=== PATIENT | female | born 1970 | race African-American/Black ===

== ENCOUNTER 2021-10-10 17:21 | Emergency (ER) | payer OTHER ==
[~2021-10-10 17:21] MED LIST: ALDACTONE25 MG PO; BACLOFEN 10MG T10 MG PO; BUSPAR5 MG PO; CATAPRES0.1 MG PO; COREG 6.25MG6.25 MG PO; COZAAR50 MG PO; FLEXERIL10 MG PO; HCTZ25 MG PO; ISOSORBIDE DINI20 M1 PO; MEDROL 4MG DOSEP4 MG PO; NORVASC5 MG PO; VENTOLIN HFA IN18 GM INH; VITAMIN B122500 MC1 PO; VOLTAREN **OUT50 MG PO; VOLTAREN **OUT75 MG PO; WELLBUTRIN XL150 MG PO
[2021-10-10 18:22] LABS: BASOPHIL 0.5 % (0-2); EOSINOPHIL 0.7 % (0-5); HCT 43.4 % (37.0-47.0); HGB 13.8 g/dl (12.5-16.0); MCH 28.4 pg (25.0-31.0); MCHC 31.8 g/dL (32.0-36.0); MCV 89.3 fL (78.0-100.0); MONOCYTE 6.1 % (0-12); MPV 10.2 fL (6.0-9.5); NEUTROPHIL 64.5 % (41-80); NRBC 0; PLT 292 K/uL (150-400); RBC 4.86 M/uL (4.20-5.40); RDW 14.9 % (11.5-14.0); WBC 8.7 K/uL (4.0-10.5)
[2021-10-10 18:27] LABS: BILIRUBIN NEGATIVE (NEGATIVE); BLOOD 1+ Ery/uL (NEGATIVE); CLARITY CLEAR (CLEAR); COLOR YELLOW (YELLOW); GLUCOSE (U) NORMAL (NORMAL); LEUKOCYTES NEGATIVE Leu/uL (NEGATIVE); NITRITE NEGATIVE (NEGATIVE); PROTEIN 2+ mg/dL (NEGATIVE); SPECIFIC GRAVITY >=1.030 (1.001-1.030); UROBILINOGEN 0.2 mg/dL (0.2-1.0)
[2021-10-10 18:33] LABS: INR 1.08 (0.9-1.2); PROTHROMBIN TIME 13.4 SECONDS (11.8-13.4); PTT 32.6 SECONDS (24.4-34.7)
[2021-10-10 18:34] LABS: D-DIMER 1.37 ug/mLFEU (0.00-0.41)
[2021-10-10 18:36] LABS: BACTERIA 1+; SQUAMOUS EPITHELIAL CELLS 20-50
[2021-10-10 18:59] LABS: ALBUMIN 2.9 g/dL (3.4-5.0); BILIRUBIN - TOTAL 0.1 mg/dL (0.2-1.0); BUN/CREAT RATIO (CALC) 13.5 RATIO; C-REACTIVE PROTEIN 0.7 mg/dL (<=0.90); CREATININE 1.63 mg/dL (0.51-0.95); GLOBULIN (CALCULATION) 4.5 g/dL; POTASSIUM 4.1 mmol/L (3.5-5.1); TOTAL PROTEIN 7.4 g/dL (6.4-8.2)
[2021-10-10 22:29] LABS: BUN/CREAT RATIO (CALC) 15.7 RATIO; CREATININE 0.83 mg/dL (0.51-0.95); POTASSIUM 3.9 mmol/L (3.5-5.1)
== END 2021-10-10 23:36 | disposition home or self-care (01) ==
LOC: FER 17:21
PROVIDERS: Emergency Medicine
DX: R07.89 Other chest pain (principal); M79.604 Pain in right leg; E86.0 Dehydration; N17.9 Acute kidney failure, unspecified; Z88.8 Allergy status to other drugs, medicaments and biological substances
CPT/HCPCS: 36415; 71275; 80048; 80053; 81001; 82728; 84145; 84484; 85025; 85379; 85610; 85730; 86140; 93005; 93971; J7030; Q9967